=== PATIENT | female | born 1945 | race Caucasian/White ===

== ENCOUNTER 2016-12-22 06:46 | Inpatient (IN) | payer OTHER ==
[~2016-12-22] VITALS: Ht 160 cm; Wt 75.3 kg
[2016-12-22] MEDS ORDERED: CEFAZOLIN 1 GM IVPB PREMIX 50 ML IV ONE (07:00)
[2016-12-22] MEDS ORDERED: POLYMYXIN 500,000/BACIT.10,000 UNITS in NS IRR 1 L IR ONE (07:25)
[2016-12-22] MEDS ORDERED: MORPHINE SULFATE 10MG/10ML PF AMP EP ONE (08:15)
[2016-12-22] MEDS ORDERED: VANCOMYCIN HCL 1000 MG/VIAL IV ONE (08:15)
[2016-12-22] MEDS ORDERED: LR 1,000 ML IV.SOLN IV ONE (08:15)
[2016-12-22] MEDS ORDERED: TRANEXAMIC ACID 1,000 MG/10 ML VIAL IV ONE (08:15)
[2016-12-22] MEDS ORDERED: MIDAZOLAM HCL 5 MG/5 ML VIAL IVP ONE (08:15)
[2016-12-22] MEDS ORDERED: ONDANSETRON HCL 4 MG/2 ML VIAL IVP ONE (08:15)
[2016-12-22] MEDS ORDERED: D5/0.45 NS 1,000 ML IV ONE (08:21)
[2016-12-22] MEDS ORDERED: BISACODYL 10 MG/SUPPOSITORY RC PRN (08:30)
[2016-12-22] MEDS ORDERED: ACETAMINOPHEN 325 MG TABLET PO PRN (08:30)
[2016-12-22] MEDS ORDERED: LR 1,000 ML IV SCH (09:07)
[2016-12-22] MEDS ORDERED: KETOROLAC TROMETHAMINE 60 MG/2 ML VIAL IM PRN (09:15)
[2016-12-22] MEDS ORDERED: NALOXONE HCL 0.4 MG/ML AMP (NARCAN) IVP PRN (09:15)
[2016-12-22] MEDS ORDERED: ONDANSETRON HCL 4 MG/2 ML VIAL IVP PRN (09:15)
[2016-12-22] MEDS ORDERED: METOCLOPRAMIDE HCL 10 MG/2 ML VIAL IVP PRN (09:15)
[2016-12-22] MEDS ORDERED: DIPHENHYDRAMINE INJ 50 MG/ML VIAL IM PRN (09:15)
[2016-12-22] MEDS ORDERED: MORPHINE SULFATE 10MG/10ML PF AMP SP SCH (09:15)
[2016-12-22 11:18] VITALS: BP 110/70; PULSE 54; RESP 16; TEMP 96.4; O2SAT 99
[2016-12-22] MEDS: MORPHINE SULFATE 10 MG/ML VIAL IM PRN ×2 (13:31→20:11)
[2016-12-22] MEDS: CEFAZOLIN 1 GM IVPB PREMIX 50 ML IV SCH ×2 (14:23→21:46)
[2016-12-22 17:04] VITALS: BP 119/61; PULSE 65; RESP 17; TEMP 97.8; O2SAT 93
[2016-12-22 17:15] VITALS: BP 119/61; PULSE 65
[2016-12-22] MEDS: RIVAROXABAN 10 MG TABLET PO SCH (18:00)
[2016-12-22 20:00] VITALS: BP 132/73; PULSE 83; RESP 18; TEMP 101.8; O2SAT 93
[2016-12-22 21:11] VITALS: TEMP 100.2
[2016-12-23 00:51] VITALS: BP 131/58; PULSE 74; RESP 22; TEMP 98.8; O2SAT 92
[2016-12-23 04:26] VITALS: BP 136/70; PULSE 76; RESP 24; TEMP 97.2; O2SAT 94
[2016-12-23] MEDS: MORPHINE SULFATE 10 MG/ML VIAL IM PRN ×2 (04:47→23:14)
[2016-12-23 08:54] VITALS: BP 128/70; PULSE 87; RESP 18; TEMP 98.8; O2SAT 100
[2016-12-23] MEDS: HYDROcodone/ACETAMIN 7.5-325 MG TAB PO PRN ×3 (09:22→20:01)
[2016-12-23] MEDS: RIVAROXABAN 10 MG TABLET PO SCH (09:23)
[2016-12-23] MEDS ORDERED: IPRATROPIUM BROM 0.5 MG/2.5 ML VIAL.NEB (ATROVENT) INH PRN (11:15)
[2016-12-23] MEDS ORDERED: ALBUTEROL SULFATE 0.083% 2.5 MG/3 ML VIAL.NEB INH PRN (11:15)
[2016-12-23 12:01] LABS: BASOPHILS % (AUTO) 0.3 % (0.0-2.0); EOSINOPHILS % (AUTO) 0.1 % (0.0-4.0); HEMATOCRIT 34.5 % (36-48); HEMOGLOBIN 11.4 g/dL (12.0-16.0); LYMPHOCYTES # (AUTO) 1.4 K/uL (1.0-5.5); LYMPHOCYTES % (AUTO) 9.6 % (20.5-51.5); MEAN CORPUSCULAR HEMOGLOBIN 29 pg (27-31); MEAN CORPUSCULAR HGB CONC 33 % (32-36); MEAN CORPUSCULAR VOLUME 86 fL (79.0-98.0); MONOCYTES # (AUTO) 1.4 K/uL (0.0-1.0); MONOCYTES % (AUTO) 9.2 % (1.7-9.3); NEUTROPHILS % (AUTO) 80.8 % (40.0-70.0); PLATELET COUNT (AUTO) 246 K/uL (130-430); RED BLOOD CELL COUNT(AUTO) 3.99 MIL/uL (4.2-6.2); RED CELL DISTRIBUTION WIDTH 12.8 % (9.0-15.0); WHITE BLOOD COUNT (AUTO) 14.8 K/uL (4.8-10.8)
[2016-12-23] MEDS: LEVOFLOXACIN 500 MG/D5W 100 ML IV SCH (12:12)
[2016-12-23 12:15] LABS: CALCIUM 9.5 mg/dL (8.4-11.0); CREATININE 0.93 mg/dL (0.55-1.30); POTASSIUM 3.9 mmol/L (3.5-5.1)
[2016-12-23 12:20] LABS: ALBUMIN 3.6 g/dL (3.4-4.8); TOTAL BILIRUBIN 0.8 mg/dL (0.0-1.0); TOTAL PROTEIN, SERUM 7.6 g/dL (6.4-8.3)
[2016-12-23 12:54] VITALS: BP 133/67; PULSE 78; RESP 18; TEMP 98.6; O2SAT 95
[2016-12-23 16:00] VITALS: BP 130/78; PULSE 72; RESP 17; TEMP 98.6; O2SAT 97
[2016-12-23 19:30] VITALS: BP 144/71; PULSE 83; RESP 20; TEMP 97.3; O2SAT 96
[2016-12-23] MEDS: IPRATROPIUM BROM 0.5 MG/2.5 ML VIAL.NEB (ATROVENT) INH SCH ×2 (20:14→23:00)
[2016-12-23] MEDS: ALBUTEROL SULFATE 0.083% 2.5 MG/3 ML VIAL.NEB INH SCH ×2 (20:14→23:00)
[2016-12-24 01:40] VITALS: BP 134/73; PULSE 96; RESP 18; TEMP 99.5; O2SAT 98
[2016-12-24] MEDS: IPRATROPIUM BROM 0.5 MG/2.5 ML VIAL.NEB (ATROVENT) INH SCH ×6 (03:00→23:38)
[2016-12-24] MEDS: ALBUTEROL SULFATE 0.083% 2.5 MG/3 ML VIAL.NEB INH SCH ×6 (03:00→23:38)
[2016-12-24 04:19] VITALS: BP 138/72; PULSE 85; RESP 17; TEMP 98.4; O2SAT 93
[2016-12-24] MEDS: MORPHINE SULFATE 10 MG/ML VIAL IM PRN ×2 (05:27→08:43)
[2016-12-24 08:00] VITALS: BP 133/77; PULSE 95; RESP 18; TEMP 97; O2SAT 95
[2016-12-24] MEDS: RIVAROXABAN 10 MG TABLET PO SCH (08:43)
[2016-12-24] MEDS: LEVOFLOXACIN 500 MG/D5W 100 ML IV SCH (11:42)
[2016-12-24 12:00] VITALS: BP 134/58; PULSE 97; RESP 20; TEMP 99.4; O2SAT 97
[2016-12-24] MEDS: HYDROcodone/ACETAMIN 7.5-325 MG TAB PO PRN ×3 (13:28→22:58)
[2016-12-24 16:00] VITALS: BP 132/69; PULSE 92; RESP 18; TEMP 99; O2SAT 97
[2016-12-24 20:00] VITALS: BP 129/71; PULSE 98; RESP 18; TEMP 99.1; O2SAT 100
[2016-12-25 00:29] VITALS: BP 115/70; PULSE 103; RESP 17; TEMP 98.3; O2SAT 97
[2016-12-25] MEDS: IPRATROPIUM BROM 0.5 MG/2.5 ML VIAL.NEB (ATROVENT) INH SCH ×2 (03:00→08:36)
[2016-12-25] MEDS: ALBUTEROL SULFATE 0.083% 2.5 MG/3 ML VIAL.NEB INH SCH ×2 (03:00→08:36)
[2016-12-25 03:37] VITALS: BP 116/73; PULSE 100; RESP 18; TEMP 97; O2SAT 97
[2016-12-25 08:13] VITALS: BP 133/78; PULSE 99; RESP 17; TEMP 97; O2SAT 97
[2016-12-25] MEDS: RIVAROXABAN 10 MG TABLET PO SCH (08:46)
[2016-12-25] MEDS: HYDROcodone/ACETAMIN 7.5-325 MG TAB PO PRN (08:47)
[2016-12-25 11:19] LABS: CALCIUM 9.5 mg/dL (8.4-11.0); CREATININE 0.84 mg/dL (0.55-1.30); POTASSIUM 3.4 mmol/L (3.5-5.1)
[2016-12-25 11:21] LABS: BASOPHILS % (AUTO) 0.3 % (0.0-2.0); EOSINOPHILS % (AUTO) 0.2 % (0.0-4.0); HEMATOCRIT 31.4 % (36-48); HEMOGLOBIN 10.6 g/dL (12.0-16.0); LYMPHOCYTES % (AUTO) 9.2 % (20.5-51.5); MEAN CORPUSCULAR HEMOGLOBIN 29 pg (27-31); MEAN CORPUSCULAR HGB CONC 34 % (32-36); MEAN CORPUSCULAR VOLUME 87 fL (79.0-98.0); MONOCYTES # (AUTO) 0.8 K/uL (0.0-1.0); NEUTROPHILS # (AUTO) 9.1 K/uL (1.8-7.7); NEUTROPHILS % (AUTO) 83.3 % (40.0-70.0); PLATELET COUNT (AUTO) 232 K/uL (130-430); RED BLOOD CELL COUNT(AUTO) 3.63 MIL/uL (4.2-6.2); RED CELL DISTRIBUTION WIDTH 12.6 % (9.0-15.0); WHITE BLOOD COUNT (AUTO) 10.9 K/uL (4.8-10.8)
[2016-12-25] MEDS: LEVOFLOXACIN 500 MG/D5W 100 ML IV SCH (11:25)
[2016-12-25 11:33] VITALS: BP 100/76; PULSE 106; RESP 18; TEMP 98.7; O2SAT 95
[2016-12-25 12:08] VITALS: BP 100/76; PULSE 106; RESP 18; TEMP 98.7; O2SAT 95
[2016-12-25] MEDS ORDERED: ACET-1172 PO (12:21)
[2016-12-25] MEDS ORDERED: RIVA10TA PO (12:24)
[2016-12-25 17:18] VITALS: BP 104/78; PULSE 103; RESP 18; TEMP 98.5; O2SAT 95
== END 2016-12-25 16:20 | DRG 470 ==
LOC: SMU 06:46
PROVIDERS: ADMIT Orthopaedic Surgery; ATTEND Orthopaedic Surgery
PROC: 0SRC0J9 Replacement of Right Knee Joint with Synthetic Substitute, Cemented, Open Approach (ICD-10-PCS; principal; 2016-12-22 08:30)
DX: M17.11 Unilateral primary osteoarthritis, right knee (principal); I10 Essential (primary) hypertension
CPT/HCPCS: 36415; 71010; 80048; 80053; 85025; 87081; 88305; 88311; 94010; 94640; 94760; 97039; 97110-GP; 97116-GP; 97530-GP; C1713; C1776; J0690; J1956; J2250; J2270; J2274; J2405; J3370; J3490; J7050; J7120